=== PATIENT | female | born 1975 | race Caucasian/White ===

== ENCOUNTER 2022-02-20 08:14 | Day surgery (SDC) | payer BC ==
[~2022-02-20 08:14] MED LIST: Lactated Ringers 1,000 ML IV SCH; Sodium Chloride 0.9% 10 ML Syringe FLUSH PRN; Sodium Chloride 0.9% 2.5 ML Syringe FLUSH PRN; Sodium Chloride 0.9% 20 ML SDV IV PRN; propofoL 50 ML ONE
== END 2022-02-20 11:30 | disposition home or self-care (01) ==
LOC: MW.SDS 08:14
PROVIDERS: ATTEND Surgery
DX: Z12.11 Encounter for screening for malignant neoplasm of colon (principal); E03.9 Hypothyroidism, unspecified; Z79.899 Other long term (current) drug therapy; Z80.0 Family history of malignant neoplasm of digestive organs; Z98.890 Other specified postprocedural states
CPT/HCPCS: 45378; 81025; J2704; J7120; 00812

== ENCOUNTER 2023-05-21 06:46 | Day surgery (SDC) | payer BC ==
[2023-05-20 09:17] LABS: HEMATOCRIT 37.8 % (36.0-46.0); HEMOGLOBIN 12.7 g/dL (12.0-16.0); MEAN CORPUSCULAR HEMOGLOBIN 30.8 pg (27.0-32.0); MEAN CORPUSCULAR HGB CONC 33.6 g/dL (31.0-37.0); MEAN CORPUSCULAR VOLUME 91.5 fL (80.0-98.0); RED BLOOD CELL COUNT 4.13 M/uL (4.30-5.90); WHITE BLOOD CELL COUNT,WBC 4.08 K/uL (4.0-11.0)
[2023-05-20 09:32] LABS: CALCIUM 8.9 mg/dL (8.5-10.1); CARBON DIOXIDE,CO2 27.8 mmol/L (21.0-32.0); CREATININE 0.8 mg/dL (0.6-1.0); EST CRCL DRUG DOSING (CG) 77.81 mL/min; POTASSIUM,K 3.9 mmol/L (3.5-5.1)
[~2023-05-21 06:46] MED LIST changes: -Sodium Chloride 0.9% 10 ML Syringe FLUSH PRN; -Sodium Chloride 0.9% 2.5 ML Syringe FLUSH PRN; -Sodium Chloride 0.9% 20 ML SDV IV PRN; +ceFAZolin 1 GM Vial IM ONE; -propofoL 50 ML ONE
[2023-05-21] MEDS ORDERED: Naloxone 0.4 MG/ML SDV IVPUSH PRN (07:18)
[2023-05-21] MEDS ORDERED: fentaNYL 50 MCG/ML SDV IVPUSH PRN (07:18)
[2023-05-21] MEDS ORDERED: HYDROmorphone 1 MG/ML Syringe IVPUSH PRN (07:18)
[2023-05-21] MEDS ORDERED: Metoclopramide 10 MG/2 ML SDV IVPUSH PRN (07:18)
[2023-05-21] MEDS ORDERED: Morphine 2 MG/ML SYRINGE IVPUSH PRN (07:18)
[2023-05-21] MEDS ORDERED: Ondansetron 4 MG/2 ML SDV IVPUSH PRN (07:18)
[2023-05-21] MEDS ORDERED: Albuterol 0.083% 2.5 MG/3 ML Neb Soln NEB PRN (07:18)
[2023-05-21] MEDS ORDERED: droPERidol 5 MG/2 ML SDV IVPUSH PRN (07:18)
[2023-05-21] MEDS ORDERED: Methylene Blue 1% 10 ML SDV ONE (07:24)
[2023-05-21] MEDS ORDERED: Bupivacaine 0.25% 30 ML SDV ONE ×2 (07:25→07:36)
[2023-05-21] MEDS ORDERED: Ropivacaine 0.5% 5 MG/ML 30 ML SDV ONE (07:36)
[2023-05-21] MEDS ORDERED: EPINEPHrine 1 MG/1 ML Amp ONE (07:36)
[2023-05-21] MEDS ORDERED: Rocuronium Bromide 50 MG/5 ML Syringe ONE (07:38)
[2023-05-21] MEDS ORDERED: Sugammadex Sodium 200 MG/2 ML VIAL ONE (07:38)
[2023-05-21] MEDS ORDERED: Ondansetron 4 MG/2 ML SDV ONE (07:38)
[2023-05-21] MEDS ORDERED: Dexamethasone 4 MG/ML 5 ML MDV ONE (07:38)
[2023-05-21] MEDS ORDERED: Ketorolac 30 MG/ML SDV ONE (07:38)
[2023-05-21] MEDS ORDERED: Lidocaine 2% 5 ML SDV ONE (07:38)
[2023-05-21] MEDS ORDERED: Propofol 200 MG/20 ML SDV ONE (07:39)
[2023-05-21] MEDS ORDERED: fentaNYL 100 MCG/2 ML SDV ONE ×2 (07:39→08:37)
[2023-05-21] MEDS ORDERED: Magnesium Sulfate (4.06 MEQ/ML) 5 GM/10 ML SDV ONE (08:39)
[2023-05-21] MEDS ORDERED: Ketamine 500 mg/10 ML MDV ONE (09:03)
[2023-05-21] MEDS ORDERED: Ketorolac 30 MG/ML SDV IVPUSH ONE (09:46)
[2023-05-21] MEDS ORDERED: Promethazine 25 MG/ML SDV IM PRN (09:46)
[2023-05-21] MEDS ORDERED: Acetaminophen/oxyCODONE 325-5 MG Tab PO PRN ×2 (09:46)
[2023-05-21] MEDS ORDERED: Lactated Ringers 1,000 ML IV SCH (10:00)
[2023-05-21] MEDS ORDERED: Ketorolac 30 MG/ML SDV IVPUSH SCH (13:30)
[2023-05-21] MEDS: Ketorolac 30 MG/ML SDV IVPUSH SCH ×2 (16:16→22:13)
[2023-05-21] MEDS: Ondansetron 4 MG/2 ML SDV IVPUSH PRN ×2 (16:43→22:23)
[2023-05-21] MEDS ORDERED: Sodium Chloride 0.9% 20 ML SDV FLUSH PRN (22:09)
[2023-05-22] MEDS: Ketorolac 30 MG/ML SDV IVPUSH SCH (04:22)
[2023-05-22 06:02] LABS: BASOPHILS PERCENT AUTO 0.2 % (0.0-1.5); EOSINOPHILS ABSOLUTE AUTO 0.1 K/uL (0.0-0.7); EOSINOPHILS PERCENT AUTO 0.7 % (0.0-7.0); HEMATOCRIT 30.8 % (36.0-46.0); HEMOGLOBIN 10.5 g/dL (12.0-16.0); LYMPHOCYTES ABSOLUTE AUTO 1.8 K/uL (0.6-2.4); LYMPHOCYTES PERCENT AUTO 20.2 % (16.0-40.0); MEAN CORPUSCULAR HEMOGLOBIN 30.3 pg (27.0-32.0); MEAN CORPUSCULAR HGB CONC 34.1 g/dL (31.0-37.0); MONOCYTES PERCENT AUTO 10.7 % (0.0-15.0); NEUTROPHILS ABSOLUTE AUTO 6.1 K/uL (1.4-5.7); NEUTROPHILS PERCENT AUTO 68.2 % (48.0-80.0); NRBC ABSOLUTE 0 K/uL; PLATELET COUNT,PLT 178 K/uL (150-400); RED BLOOD CELL COUNT 3.46 M/uL (4.30-5.90); WHITE BLOOD CELL COUNT,WBC 8.98 K/uL (4.0-11.0)
[2023-05-22 06:19] LABS: CALCIUM 7.6 mg/dL (8.5-10.1); CARBON DIOXIDE,CO2 28.8 mmol/L (21.0-32.0); CREATININE 0.7 mg/dL (0.6-1.0); EST CRCL DRUG DOSING (CG) 88.93 mL/min; POTASSIUM,K 3.8 mmol/L (3.5-5.1)
[2023-05-22] MEDS ORDERED: LEVOTHYROXINE SODIUM PO SCH (07:30)
[2023-05-22] MEDS ORDERED: LIOTHYRONINE SODIUM 5 MCG PO SCH ×2 (07:30→14:00)
== END 2023-05-22 09:49 | disposition home or self-care (01) ==
LOC: MW.SDS 06:46 → MW.OB 11:14 → MW.SDS 05-22 09:49
PROVIDERS: ATTEND Obstetrics & Gynecology
DX: N80.03 Adenomyosis of the uterus (principal); D27.1 Benign neoplasm of left ovary; N80.02 Deep endometriosis of the uterus; N83.8 Other noninflammatory disorders of ovary, fallopian tube and broad ligament; N73.6 Female pelvic peritoneal adhesions (postinfective); E03.9 Hypothyroidism, unspecified; F41.9 Anxiety disorder, unspecified; Z79.890 Hormone replacement therapy; Z79.899 Other long term (current) drug therapy; Z98.51 Tubal ligation status
CPT/HCPCS: 36415; 58552; 80048; 85025; 85027; 86850; 86900; 86901; A9270; J0131; J0171; J1100; J1170; J1885; J2405; J2704; J2795; J3010; J3475; J3490; J7030; J7120; Q9968; 00944; 64488